=== PATIENT | male | born 1975 | race Caucasian/White ===

== ENCOUNTER 2018-05-13 10:47 | Emergency (ER) | payer SELFPAY ==
[2018-05-13 11:15] VITALS: TEMP 98.4
[2018-05-13 13:01] VITALS: BP 119/75; PULSE 66; RESP 18; O2SAT 100
--- NOTE | 2018-05-13 16:55 | ED PDOC ---
Arrival/HPI - General Chief Complaint: Back Pain Time Seen by Provider: 05/13/18 11:37 Historian: Patient - History of Present Illness Narrative History of Present Illness (Text): 05/13/18 19:35 A 43 year old male, whose past medical history includes injury to right ear area w/subsequent cervical spine problems, presents to the emergency department complaining of right-side back pain. Patient reports pain radiates down to the r ight lower extremity. States he has been prescribed Zanaflex (which he has not been taking) and has taken some Naprosyn. Patient denies any bowel or bladder dysfunction, saddle anesthesia, weakness, difficulty ambulating, nausea, vomiting, diarrhea, injuries/trauma, or any other complaints at this time. Past Medical History - Provider Review Nursing Documentation Reviewed: Yes - Cardiac Hx Cardiac Disorders: No - Pulmonary Hx Respiratory Disorders: No - Neurological Hx Neurological Disorder: Yes Other/Comment: NEUROPATHIC PAIN - HEENT Hx HEENT Disorder: No - Renal Hx Renal Disorder: No - Endocrine/Metabolic Hx Endocrine Disorders: No - Hematological/Oncological Hx Blood Disorders: No - Integumentary Hx Dermatological Disorder: No - Musculoskeletal/Rheumatological Hx Musculoskeletal Disorders: Yes Hx Back Pain: Yes - Gastrointestinal Hx Gastrointestinal Disorders: No - Genitourinary/Gynecological Hx Genitourinary Disorders: No - Psychiatric Hx Psychophysiologic Disorder: No Hx Substance Use: No - Surgical History Other/Comment: CYST REMOVED Family/Social History - Physician Review Nursing Documentation Reviewed: Yes Family/Social History: No Known Family HX Smoking Status: Never Smoked Hx Alcohol Use: No Hx Substance Use: No Allergies/Home Meds Allergies/Adverse Reactions: Allergies No Known Allergies Allergy (Verified 05/13/18 11:09) Home Medications: Home Meds Medication Instructions Recorded Confirmed RX: Naproxen [Naprosyn] 500 mg PO Q8 05/13/18 05/13/18 RX: Nortriptyline HCl [Pamelor] 10 mg PO DAILY 05/13/18 05/13/18 RX: tiZANidine [Zanaflex] 2 mg PO DAILY 05/13/18 05/13/18 Review of Systems - Physician Review All systems were reviewed & negative as marked: Yes - Review of Systems Gastrointestinal: absent: Diarrhea, Nausea, Vomiting Musculoskeletal: Other (right side back pain radiating to right lower extremity.) Physical Exam Vital Signs Reviewed: Yes Vital Signs Temp Pulse Resp BP Pulse Ox 05/13/18 12:59 66 18 119/75 100 05/13/18 11:10 98.4 F 60 17 129/87 98 Temperature: Afebrile Blood Pressure: Normal Pulse: Regular Respiratory Rate: Normal Appearance: Positive for: Well-Appearing, Non-Toxic, Comfortable Pain Distress: None Mental Status: Positive for: Alert and Oriented X 3 - Systems Exam Head: Present: Atraumatic, Normocephalic Pupils: Present: PERRL Extroacular Muscles: Present: EOMI Conjunctiva: Present: Normal Mouth: Present: Moist Mucous Membranes Neck: Present: Normal Range of Motion Respiratory/Chest: Present: Clear to Auscultation, Good Air Exchange. No: Respiratory Distress, Accessory Muscle Use Cardiovascular: Present: Regular Rate and Rhythm, Normal S1, S2. No: Murmurs Abdomen: No: Tenderness, Distention, Peritoneal Signs Back: Present: Paraspinal Tenderness (right-side lumbar region) Upper Extremity: Present: Normal Inspection. No: Cyanosis, Edema Lower Extremity: Present: Normal Inspection. No: Edema Neurological: Present: GCS=15, CN II-XII Intact, Speech Normal, Motor Func Grossly Intact, Normal Sensory Function, Norm Deep Tendon Reflexes, Gait Normal Skin: Present: Warm, Dry, Normal Color. No: Rashes Psychiatric: Present: Alert, Oriented x 3, Normal Insight, Normal Concentration Medical Decision Making ED Course and Treatment: 05/13/18 19:39 Impression: 43 year old male with right back pain radiating to right lower extremity. Plan: -- Toradol -- Reassess and disposition Progress Notes: 05/13/18 12:45 Patient reassessed at this time, and patient stated he feels better. Patient states has very few of Naprosyn and Zanaflex left. Will provide refill. Patient discharged home. - Medication Orders Current Medication Orders: Discontinued Medications Ketorolac Tromethamine (Toradol) 60 mg IM STAT STA Stop: 05/13/18 11:50 Last Admin: 05/13/18 12:09 Dose: 60 mg MALCOLM Pain Assessment Document 05/13/18 12:09 KEN (Rec: 05/13/18 12:09 KEN [id number]) Pain Reassessment Is this a pain reassessment? No Sleep Is patient sleeping during reassessment? No Presence of Pain Presence of Pain Yes IM Administration Charges Document 05/13/18 12:09 KEN (Rec: 05/13/18 12:09 KEN [id number]) Charges for Administration # of IM Administrations 1 - Scribe Statement The provider has reviewed the documentation as recorded by the Derikiblissa Ariza Provider Scribe Attestation: All medical record entries made by the Scribe were at my direction and personally dictated by me. I have reviewed the chart and agree that the record accurately reflects my personal performance of the history, physical exam, medical decision making, and the department course for this patient. I have also personally directed, reviewed, and agree with the discharge instructions and disposition. Disposition/Present on Arrival - Present on Arrival Any Indicators Present on Arrival: No History of DVT/PE: No History of Uncontrolled Diabetes: No Urinary Catheter: No History of Decub. Ulcer: No History Surgical Site Infection Following: None - Disposition Have Diagnosis and Disposition been Completed?: Yes Diagnosis: Low back pain, Sciatica, Medication refill Disposition: HOME/ ROUTINE Disposition Time: 12:45 Patient Plan: Discharge Condition: IMPROVED Discharge Instructions (ExitCare): Low Back Pain (DC), Sciatica (DC) Print Language: TANZANIAN Prescriptions: RX: Naproxen 500 mg PO BID #20 tablet tiZANidine [Zanaflex] 2 mg PO DAILY #10 tab Referrals: [facility] [Outside] - Follow up with primary [facility] [Outside] - Follow up with primary Melody Valle MD [Medical Doctor] - Follow up with primary Forms: [employer] (Portuguese)
== END 2018-05-13 13:17 | disposition home or self-care (01) ==
LOC: ED 10:47
DX: M54.40 Lumbago with sciatica, unspecified side (principal); Z76.0 Encounter for issue of repeat prescription
CPT/HCPCS: 96372; 99282; J1885

== ENCOUNTER 2018-06-27 15:16 | Emergency (ER) | payer OTHER ==
[2018-06-27 15:38] VITALS: BMI 31.6
--- NOTE | 2018-06-27 16:24 | ED PDOC ---
Arrival/HPI - General Chief Complaint: Dizziness/Lightheaded Time Seen by Provider: 06/27/18 15:31 Historian: Check Out Cashier (ID number: [id number]) - History of Present Illness Narrative History of Present Illness (Text): 06/27/18 16:19 43 M with no significant pmh presents with cc of sharp back pain w/SOB radiating to arms b/o and shoulders b/l 2-3 days. Patient denies any heavy lifting. Patient reports the back pain is exacerbated when tilting head back. Patient also complains of dizziness and chest pain. Patient denies any fevers, chills, headache, dyspnea on exertion, cough, diaphoresis, abdominal pain, nausea, vomiting, diarrhea, neck pain, or any other complaint. Time/Duration: < week Symptom Onset: Sudden Symptom Course: Unchanged Activities at Onset: Light Context: Home Past Medical History - Provider Review Nursing Documentation Reviewed: Yes - Infectious Disease Hx of Infectious Diseases: None - Cardiac Hx Cardiac Disorders: No - Pulmonary Hx Respiratory Disorders: No - Neurological Hx Neurological Disorder: Yes Other/Comment: NEUROPATHIC PAIN - HEENT Hx HEENT Disorder: No - Renal Hx Renal Disorder: No - Endocrine/Metabolic Hx Endocrine Disorders: No - Hematological/Oncological Hx Blood Disorders: No - Integumentary Hx Dermatological Disorder: No - Musculoskeletal/Rheumatological Hx Musculoskeletal Disorders: Yes Hx Back Pain: Yes - Gastrointestinal Hx Gastrointestinal Disorders: No - Genitourinary/Gynecological Hx Genitourinary Disorders: No - Psychiatric Hx Psychophysiologic Disorder: No Hx Substance Use: No - Surgical History Other/Comment: CYST REMOVED Family/Social History - Physician Review Nursing Documentation Reviewed: Yes Family/Social History: Unknown Family HX Smoking Status: Never Smoked Hx Alcohol Use: No Frequency of alcohol use: Socially Hx Substance Use: No Allergies/Home Meds Allergies/Adverse Reactions: Allergies No Known Allergies Allergy (Verified 05/13/18 11:09) Home Medications: Home Meds Medication Instructions Recorded Confirmed Naproxen [Naprosyn] 500 mg PO Q8 05/13/18 05/13/18 Nortriptyline HCl [Pamelor] 10 mg PO DAILY 05/13/18 05/13/18 tiZANidine [Zanaflex] 2 mg PO DAILY 05/13/18 05/13/18 Review of Systems - Physician Review All systems were reviewed & negative as marked: Yes - Review of Systems Constitutional: Normal Eyes: Normal ENT: Normal Respiratory: SOB Cardiovascular: Chest Pain Gastrointestinal: Normal Genitourinary Male: Normal Musculoskeletal: Arthralgias (b/l arms and b/l shoulders), Back Pain. absent: Neck Pain Skin: Normal Neurological: Dizziness Endocrine: Normal Hemo/Lymphatic: Normal Psychiatric: Normal Physical Exam - Physical Exam Narrative Physical Exam (Text): 06/27/18 16:26 Gen: VS reviewed, alert, well developed, well nourished, nontoxic, mild distress Eye: EOMI, PERRL ENT: normal pharynx. Neck: no JVD, supple, no adenopathy CV: regular rate, regular rhythm, no rubs,no murmur, S1, S2 Pulm: no distress, clear to auscultation, no wheeze, no rhonchi, breath sounds equal, no rales Back: Mild upper midline tenderness around C1 and T7 Abd: soft, nontender, no guarding, no rebound, no rigidity Ext: no edema Skin: good color, no rash, no cyanosis Psych: responds appropriately to questions, normal affect Neuro: oriented x3, CN2-12 intact grossly, motor intact, sensation intact Vital Signs Temp Pulse Resp BP Pulse Ox 06/27/18 15:30 98.6 F 69 18 149/79 97 Medical Decision Making ED Course and Treatment: 06/27/18 16:25 Impression: 43 M presents with cc of back pain w/SOB radiating to arms b/o and shoulders b/l 2-3 days Plan: -- Labs -- EKG -- CXR -- Cervical Spine X ray -- Reassess and disposition Prior Visits: Notes and results from previous visits were reviewed. Progress Notes: 06/27/18 18:37 patient seen for chief complaint of neck pain radiating into shoulders, upper chest and upper back, reproducible to exaggerated movement of the head (Primarily extension). No acute neuro deficits to suggest cord compression. will tx with nsaids and conservative tx. refer to pcp for comprehensive care. - EKG Interpretation EKG Interpretation (Text): 06/27/18 16:39 ekg my keya: nsr at 77 bpm, nml qrs, nm laxis, no acute sttw abn Interpreted by ED Physician: Yes - Scribe Statement The provider has reviewed the documentation as recorded by the Jaquan Stevens All medical record entries made by the Jaquan were at my direction and personally dictated by me. I have reviewed the chart and agree that the record accurately reflects my personal performance of the history, physical exam, medical decision making, and the department course for this patient. I have also personally directed, reviewed, and agree with the discharge instructions and disposition. Disposition/Present on Arrival - Present on Arrival Any Indicators Present on Arrival: No History of DVT/PE: No History of Uncontrolled Diabetes: No Urinary Catheter: No History of Decub. Ulcer: No History Surgical Site Infection Following: None - Disposition Have Diagnosis and Disposition been Completed?: Yes Diagnosis: Cervical radicular pain Disposition: HOME/ ROUTINE Disposition Time: 18:34 Patient Plan: Discharge Patient Problems: Current Active Problems Problem Status Onset Cervical radicular pain Acute Condition: STABLE Discharge Instructions (ExitCare): Radiculopathy (DC) Print Language: SINHALA Referrals: Melody Valle MD [Medical Doctor] - Follow up with primary Forms: [employer] (Faroese), WORK NOTE
--- NOTE | 2018-06-27 17:32 | CARD ---
APPROVED REPORT Date of service: 06/27/2018 EKG Measurement Heart [id number] <Conclusion> Normal sinus rhythm with sinus arrhythmia Normal ECG
[2018-06-27 17:51] LABS: BASO # 0.01 K/mm3 (0.0-2.0); BASO % 0.2 % (0.0-3.0); EOS # 0.1 (0.0-0.7); EOS % 1.8 % (1.5-5.0); HEMOGLOBIN 14.3 g/dL (14.0-18.0); LYMPH # 1.4 (1.2-3.4); LYMPH % 20.5 % (22.0-35.0); MEAN CELL VOLUME 84.2 fl (80.0-105.0); MEAN CORPUSCULAR HEMOGLOBIN 28.5 pg (25.0-35.0); MEAN CORPUSCULAR HGB CONC 33.9 g/dl (31.0-37.0); MEAN PLATELET VOLUME 10.3 fl (7.0-11.0); MONO # 0.4 (0.1-0.6); MONO % 6.6 % (1.0-6.0); RBC 5.01 10^6/uL (3.5-6.1); RED CELL DISTRIBUTION WIDTH 13.5 % (11.5-14.5); WHITE BLOOD COUNT 6.6 10^3/uL (4.5-11.0)
[2018-06-27 17:58] LABS: ALB/GLOB RATIO 1.4 (1.1-1.8); ALBUMIN 4.4 g/dL (3.0-4.8); ALT/SGPT 55 U/L (7-56); AST/SGOT 32 U/L (17-59); BLOOD UREA NITROGEN 18 mg/dL (7-21); CALCIUM 9.4 mg/dL (8.4-10.5); GFR NON-AFRICAN AMERICAN > 60
--- NOTE | 2018-06-27 17:58 | RAD ---
Date of service: 06/27/2018 PROCEDURE: CHEST RADIOGRAPH, 1 VIEW HISTORY: chest pain COMPARISON: None available. FINDINGS: LUNGS: The lungs are well inflated and clear. There is linear atelectasis/scarring in the left lower lobe. PLEURA: No pneumothorax or pleural effusion. CARDIOVASCULAR: The heart is normal in size. No aortic atherosclerotic calcifications present. OSSEOUS STRUCTURES: Within normal limits for the patient's age. VISUALIZED UPPER ABDOMEN: Normal. OTHER FINDINGS: None. IMPRESSION: No active pulmonary disease.
[2018-06-27 18:08] LABS: TROPONIN I < 0.01 ng/mL
--- NOTE | 2018-06-27 18:11 | RAD ---
Date of service: 06/27/2018 PROCEDURE: Cervical Spine Radiographs. HISTORY: Pain. COMPARISON: None available. TECHNIQUE: 3 views obtained. FINDINGS: BONES: There is mild degenerative retrolisthesis of C5 on C6. There is normal cervical lordosis. Vertebral height is normal. Bone mineralization is normal. There is no acute fracture or traumatic anterior listhesis. The craniocervical junction is normal. The atlantoaxial joint normal. DISC SPACES: There is mild degenerative disc disease at C5-6 with mild reduced disc height. The remaining disc heights are maintained. The neural foramina are preserved. SOFT TISSUES: Normal. No prevertebral soft tissue swelling. OTHER FINDINGS: None. IMPRESSION: Mild degenerative disc disease at C5-6. Straightening of the cervical spine may be positional or related to muscle spasm.
[2018-06-27 19:10] VITALS: BP 133/70; PULSE 72; RESP 17; TEMP 97.7; O2SAT 98
== END 2018-06-27 19:08 | disposition home or self-care (01) ==
LOC: ED 15:16
DX: M54.12 Radiculopathy, cervical region (principal)
CPT/HCPCS: 71045; 72050; 80053; 84484; 85025; 93005; 96374; 99285; J1885